=== PATIENT | female | born 1935 | race Caucasian/White ===

== ENCOUNTER 2016-08-29 15:16 | Inpatient (IN) | payer MEDICARE, BC ==
--- NOTE | ~2016-08-29 | HP ---
History And Physical [address] [address] NAME: JOHNIE GRECO : 35 STATUS : ADM IN [facility]#: [id number] AGE: 80 ADM/REG DATE : 08/29/16 MR#: [id number] REPORT SERV DATE: 08/29/16 DICTATED BY: DONI SANTOS DATE: 08/29/16 REPORT STATUS : Draft TRANSCRIBED BY: SOCORRO DATE: 08/29/16 DATE OF ADMISSION: 08/29/2016 CHIEF COMPLAINT: Hypoxia. HISTORY OF PRESENT ILLNESS: This is an 80-year-old female with a past medical history of atrial fibrillation and hypertension. According to the family, over the past few days, the patient has had decreased generalized weakness and decreased oral intake with a positive whitish to yellowish productive cough and some shortness of breath. The patient was taken to an urgent care facility found to be hypoxic and was referred to an emergency department. Upon arrival, the patient was seen by Dr. Sanchez. The patient's oxygen sats were 84%. The patient was placed on oxygen and currently on 4 L up to 94% to 96%. There is an unknown history of subjective fever and chills due to the patient's dementia. She is a poor history lime vat tender. However, she denies any swelling of her legs. Denies any chest pain. The family states that the patient has been in bed mostly for the past two days which is unusual for her. REVIEW OF SYSTEMS: Please refer to HPI, limited secondary to the patient's dementia. PAST MEDICAL HISTORY: Hypertension; dementia; GERD; left breast cancer, status post mastectomy; borderline diabetes, atrial fibrillation, dementia, PE x3 with her knee replacement. PAST SURGICAL HISTORY: Tubal ligation, left mastectomy, breast biopsy and breast reconstruction, total knee arthroplasty. SOCIAL HISTORY: No tobacco, alcohol, or illicit drugs. Family, son and daughter and others are at bedside currently. FAMILY HISTORY: Type 2 diabetes. ALLERGIES: TO LATEX. HOME MEDICATIONS: Aspirin 81 mg p.o. daily, vitamin B12 of 1000 mcg p.o. daily, Nexium 40 mg p.o. daily, Flonase one- to two-spray each nasal daily p.r.n., Claritin 10 mg p.o. daily, Namenda XR 28 mg p.o. daily, metoprolol tartrate 25 mg p.o. daily, Seroquel 25 mg p.o. q.h.s. p.r.n., Zoloft 100 mg p.o. daily, warfarin 3 mg p.o. q.48 hours and alternate 5 mg p.o. q.48 hours. PHYSICAL EXAMINATION: VITAL SIGNS: Temp of 99.9, blood pressure 122/82 with a pulse of 87, respiration of 22, initially saturating 84% on room air, now 94% to 96% on 4 L. GENERAL: The patient is alert and oriented to self and place. Obese, very responsive, very alert. HEENT: Pupils equal, round, and reactive to light. Extraocular muscles are intact. Moist History And Physical [address] [address] NAME: JOHNIE GRECO : 35 STATUS : ADM IN [facility]#: [id number] AGE: 80 ADM/REG DATE : 08/29/16 MR#: [id number] REPORT SERV DATE: 08/29/16 DICTATED BY: DONI SANTOS DATE: 08/29/16 REPORT STATUS : Draft TRANSCRIBED BY: SOCORRO DATE: 08/29/16 mucous membranes. No dentition. CARDIOVASCULAR: S1, S2. Regular rate and rhythm. No murmurs, rubs, or gallops. No JVD. RESPIRATORY: Bilateral rhonchi with bilateral expiratory wheezes in all miner. No tachypnea. ABDOMEN: Positive bowel sounds. Soft, nontender. No rebound. No fluid wave. No distention. EXTREMITIES: 2+ pulse bilaterally. No edema. NEURO: Cranial nerves II through XII grossly intact. Moves all four extremities, but with generalized weakness. IMAGING: Chest x-ray with some haziness, bibasilar. LABORATORY DATA: Sodium 141, potassium 4.0 with a chloride of 104, bicarb of 28, BUN of 10, creatinine of 0.7, with a glucose of 122. Albumin of 3.7, T-bilirubin of 1.1, alkaline phosphatase of 70, ALT of 27, with an AST of 30. Troponin less than 0.02. Lactate of 0.6. White count of 7.8 with a hemoglobin of 12.7, platelet count of 150. INR of 1.8. UA with a specific gravity 1.014, moderate amount of blood negative nitrites ,negative leukocyte esterase, 1 white blood cell, 12 red blood cells. EKG with atrial fibrillation. No ST elevation. Possible right bundle branch block. ASSESSMENT AND PLAN: 1. Acute hypoxia. 2. Acute bronchitis exacerbation with possible underlying pneumonia. 3. Debility. 4. Atrial fibrillation. 5. Hypertension. 6. The patient will be admitted to the hospital, placed on IV antibiotics. We will check procalcitonin. Also, we will perform bronchodilators. Also, we will follow up with a sputum culture and stain and also pending blood cultures. Also, the patient to be seen by Physical Therapy for her debility. There are no neuro focal deficits to suggest a cerebrovascular accident, but debilitated secondary to her hypoxia. 7. This patient will be admitted to my colleague who will attend to this patient's care. SOUTH/MODL Doni Santos M.D. / [id number] CC: Sarah Wyatt M.D.
--- NOTE | ~2016-08-29 | CN ---
Consultation Report [facility] [address] [place]. [address] NAME: JOHNIE HARDING : 35 STATUS : ADM IN PAT#: [id number] AGE: 80 ADM/REG DATE : 08/29/16 MR#: [id number] REPORT SERV DATE: 09/02/16 DICTATED BY: ISRRAEL BLANK DATE: 09/02/16 REPORT STATUS : Draft TRANSCRIBED BY: MODJez DATE: 09/02/16 CONSULTATION DATE OF CONSULTATION: Dear Dr. Wang: Thank you for requesting my opinion regarding evaluation and management of Ms. Johnie Harding's shortness of breath and hypoxemia. Ms. Harding is an extremely pleasant, 80-year-old female with a significant past medical history of dementia, hypertension, GERD, left breast cancer, status post mastectomy, borderline diabetes, atrial fibrillation, and PE x3, status post previous knee replacement, who presented to [facility] on 08/29/2016 with hypoxemia and shortness of breath. At that time, she was requiring 4 L nasal cannula and saturating in the mid 90s. She also had a modified barium swallow on 09/02/2016 that demonstrated follicular and piriform sinus pooling prior to swallows and flash penetration with liquids. She also had a CT scan of the chest on 08/31/2016 that demonstrated no PE and subsegmental atelectatic changes in the left lung base and mild cardiomegaly. She had a previous echocardiogram that was performed on 10/30/2016 that demonstrated normal LV size and function with an EF of 55%. There was moderate concentric LVH, mild left atrial enlargement, and no significant valvular disease. At some point, the patient was deemed to have a COPD, yet she had no history of prior smoking or any previous history of lung disease including COPD or asthma. The patient has been treated with Levaquin, Brovana, Pulmicort, DuoNeb scheduled and p.r.n. and moderate doses of Solu-Medrol with a clinical improvement. Her most significant improvement however came after two small doses of Bumex yesterday with an appropriate diuretic response. The patient states that, her symptoms of shortness of breath have improved. Her cough is also significantly improved. She currently describes her shortness of breath as mild in nature, well localized to the chest, nonradiating with no significant alleviating or exacerbating factors. Historically, the patient's family states that she recently had arm fracture, which required her to be in a cast, and she had been eating and laying in bed for most of that time. REVIEW OF SYSTEMS: A detailed 14-point review of systems was completed. Pertinent positives and negatives are listed above. PAST MEDICAL HISTORY: 1. Hypertension. 2. Dementia. 3. GERD. 4. Left breast cancer. Consultation Report [address] [place]. [address] NAME: JOHNIE HARDING : 35 STATUS : ADM IN PAT#: [id number] AGE: 80 ADM/REG DATE : 08/29/16 MR#: [id number] REPORT SERV DATE: 09/02/16 DICTATED BY: ISRRAEL BLANK DATE: 09/02/16 REPORT STATUS : Draft TRANSCRIBED BY: SOCORRO DATE: 09/02/16 5. Status post mastectomy. 6. Borderline diabetes. 7. Atrial fibrillation. 8. Dementia. 9. PE x3 with her knee replacement. PAST SURGICAL HISTORY: 1. As above. 2. Tubal ligation. 3. Left mastectomy. 4. Breast biopsy. 5. Breast reconstruction. 6. Total knee replacement. SOCIAL HISTORY: The patient has no history of alcohol, tobacco, or illicit drug abuse. Family, son, and daughters have been her primary support structure. She typically has somebody, who is living in the house with her at night. FAMILY HISTORY: Type 2 diabetes. ALLERGIES: LATEX. HOME MEDICATIONS: Reviewed and located in the paper chart. PHYSICAL EXAMINATION: VITAL SIGNS: Afebrile. T-current of 97.4, pulse of 98, respiratory rate of 18, 2 L 93%, blood pressure 111/67. GENERAL: No acute distress. Able to communicate in full paragraphs at a time. HEENT: Normocephalic, atraumatic. Pupils are equal, round, reactive to light and accommodation. Posterior oropharynx is clear. Edentulous. NECK: No JVD. No LAD. Trachea midline. CARDIOVASCULAR: Regular rate and rhythm. S1, S2 present. LUNGS: Coarse bilateral breath sounds. Crackles at the bases. ABDOMEN: Protuberant, nontender, nondistended, soft. Positive bowel sounds. EXTREMITIES: No clubbing, cyanosis, or edema. SKIN: No new rashes, lesions, or ulcers. PSYCHIATRIC: Alert and oriented x3. Appropriate mood and affect. Appropriate insight and judgment. NEUROLOGIC: 5/5 strength in upper and lower extremities. Cranial nerves II through XII intact. Gait not tested. DTRs not performed. LABORATORY DATA: White count of 6, hemoglobin of 12, platelet count of 152. INR of 2.0. Chemistries demonstrate a creatinine of 0.74. Sputum culture with growth of normal heidy. Consultation Report [address] [place]. [address] NAME: JOHNIE HARDING : 35 STATUS : ADM IN PAT#: [id number] AGE: 80 ADM/REG DATE : 08/29/16 MR#: [id number] REPORT SERV DATE: 09/02/16 DICTATED BY: ISRRAEL BLANK DATE: 09/02/16 REPORT STATUS : Draft TRANSCRIBED BY: SOCORRO DATE: 09/02/16 CTA of the chest on 08/31/2016 was personally reviewed by me. I agree with the following interpretation. No PE, subtle atelectatic changes in the left lung base, coronaries demonstrates some focal calcification in the LAD. There is mild cardiomegaly. Swallowing study on 09/01/2016 demonstrated vallecular and piriform sinus pooling to prior swallows and flash penetration with thickening liquids. ASSESSMENT AND PLAN: Ms. Johnie Harding is an extremely pleasant 80-year-old female with no prior history of tobacco abuse or pulmonary issues, who presented to [facility] with worsening shortness of breath and hypoxemia. The patient was treated with antibiotics, steroids, and bronchodilators with modest clinical improvement; however, the most dramatic improvement in her oxygenation was after small doses of diuretics. Her cardiac function is normal and she may have some diastolic dysfunction. Her shortness of breath is likely multifactorial due to the followin. Possible chronic aspiration after an abnormal modified barium swallow. 2. Acute bronchitis. 3. Deconditioning. 4. The patient was using small doses of narcotics after her fracture and may have had silent aspiration at that time. To optimize her pulmonary status I recommend the followin. Discontinue Solu-Medrol. 2. Discontinue antibiotics. The patient has had six days of Levaquin. 3. Discontinue Pulmicort. 4. Discontinue Brovana. 5. DuoNeb q.6 hours scheduled and q.2 hours p.r.n. 6. Aspiration precautions. 7. ICS q.1 hour. 8. Ambulate in mireles t.i.d. 9. Bumex 1 mg IV b.i.d. x1 day and will have first dose now. 10.Scheduled outpatient followup with [facility]. 11.The patient will require full pulmonary function tests and repeat oximetry on the day of the outpatient visit. I will follow along with her throughout her hospitalization this week. Thank you for allowing me to participate in this woman's care. Case has been discussed in detail with Dr. Wang. PILY/SOCORRO Consultation Report [address] [place]. [address] NAME: JOHNIE HARDING : 35 STATUS : ADM IN [facility]#: [id number] AGE: 80 ADM/REG DATE : 08/29/16 MR#: [id number] REPORT SERV DATE: 09/02/16 DICTATED BY: ISRRAEL BLANK DATE: 09/02/16 REPORT STATUS : Draft TRANSCRIBED BY: SOCORRO DATE: 09/02/16 Isrrael Blank M.D. / [id number] CC: Sarah Mejia M.D.
--- NOTE | ~2016-08-29 | CN ---
Consultation Report [address] [place]. [address] NAME: JOHNIE GRECO : 35 STATUS : ADM IN PAT#: [id number] AGE: 80 ADM/REG DATE : 08/29/16 MR#: [id number] REPORT SERV DATE: 09/02/16 DICTATED BY: JEM RIBEIRO DATE: 09/02/16 REPORT STATUS : Draft TRANSCRIBED BY: MODL DATE: 09/02/16 INPATIENT CONSULTATION DATE OF CONSULTATION: This is an 80-year-old woman who I am asked to evaluate by Dr. Wang for dysphagia. This woman has mild dementia. She was admitted to the hospital with acute bronchitis and hypoxia. There was some concern she could have had an aspiration event. Initial chest x- ray showed mild vascular congestion, but no definite infiltrate. Due to the dementia, swallowing study was performed. It showed vallecular and piriform sinus pooling and some flash penetration with thin liquids, but no evidence of aspiration. We were asked to evaluate about this abnormal study. She is now on mechanical soft diet with aspiration precautions and tolerating without difficulty. She has no symptoms of esophageal pathology. Prior chest imaging did show a medium-sized hiatal hernia. She denies any reflux or other chronic gastrointestinal issues. PAST MEDICAL HISTORY: 1. Dementia. 2. Hypertension. 3. GERD. 4. Left breast cancer. 5. Borderline diabetes. 6. Atrial fibrillation. 7. Pulmonary embolism. PAST SURGICAL HISTORY: Status post mastectomy, status post total knee replacement, status post tubal ligation, status post breast biopsy. MEDICATIONS: Tylenol, Mylanta, Zithromax, Pulmicort, Bumex, Ancef, Pepcid, Lovenox, fentanyl, Vicodin as needed, Coumadin. ALLERGIES: NO KNOWN DRUG ALLERGIES. FAMILY HISTORY: No GI malignancy. SOCIAL HISTORY: No current tobacco or alcohol abuse. REVIEW OF SYSTEMS: Otherwise, unremarkable. PHYSICAL EXAMINATION: GENERAL: She is alert and oriented, although somewhat confused about issues of her past history. VITAL SIGNS: Afebrile. Consultation Report [address] [place]. [address] NAME: JOHNIE GRECO : 35 STATUS : ADM IN PAT#: [id number] AGE: 80 ADM/REG DATE : 08/29/16 MR#: [id number] REPORT SERV DATE: 09/02/16 DICTATED BY: JEM RIBEIRO DATE: 09/02/16 REPORT STATUS : Draft TRANSCRIBED BY: SOCORRO DATE: 09/02/16 LUNGS: Clear. CARDIOVASCULAR: Regular rate and rhythm without murmur. ABDOMEN: Soft and nontender. EXTREMITIES: No edema. LAB: Potassium 3.9, sodium 145. Pro time/INR 2.0. Albumin 3.3. IMPRESSION: Mild oropharyngeal dysphagia without evidence of aspiration or esophageal pathology. RECOMMENDATIONS: 1. Continue mechanical soft diet perhaps using with her liquids and continuing aspiration precautions. 2. I see no evidence of esophageal pathology at this time, although she does have a hiatal hernia and should probably stay on some reflux medication. 3. No indication for PEG tube at this time. 4. I will certainly be available if needed. Should her dementia and swallowing issues progress and require PEG tube placement. /SOCORRO Jem Ribeiro M.D. / [id number] CC: Sarah Mejia M.D.
--- NOTE | ~2016-08-29 | PUL ---
[address] [address] NAME: JOHNIE GRECO : 35 STATUS : DIS IN PAT#: [id number] AGE: 80 ADM/REG DATE : 08/29/16 MR#: [id number] REPORT SERV DATE: 09/05/16 DICTATED BY: ISRRAEL PEREZ DATE: 09/04/16 REPORT STATUS : Draft TRANSCRIBED BY: MODL DATE: 09/04/16 PULMONARY FUNCTION TEST Overnight oximetry performed on 2 L nasal cannula, 6 hours 38 minutes and 20 seconds. Saturations were less than 88% for 6 minutes 56 seconds. Consider oxygen titration study or sleep study. Abnormal oximetry report. Clinical correlation is recommended. PILY/SOCORRO Isrrael Perez M.D. / [id number] CC: Sarah Mejia M.D.
--- NOTE | ~2016-08-29 | DS ---
Discharge Summary [facility] [address] [place]. [address] NAME: JOHNIE GRECO : 35 STATUS : DIS IN PAT#: [id number] AGE: 80 ADM/REG DATE : 08/29/16 MR#: [id number] REPORT SERV DATE: 09/07/16 DICTATED BY: TIMUR MAE DATE: 09/04/16 REPORT STATUS : Draft TRANSCRIBED BY: MODL DATE: 09/04/16 ADMISSION DATE: 08/29/2016 DISCHARGE DATE: 09/04/2016 DISCHARGE DIAGNOSES: 1. Acute hypoxemic respiratory failure thought to be due to acute bronchitis, recurrent microaspiration, possible left ventricular diastolic dysfunction, possible sleep- disordered breathing, and perhaps chronic obstructive pulmonary disease with outpatient pulmonary function testing and sleep study pending. Acute bronchitis. 2. Oropharyngeal dysphagia based on modified barium swallow with prominent cricopharyngeus. 3. Elevated BNP at 192.5 with May echocardiogram showing normal left ventricular function with left ventricular hypertrophy, suspected clinical diastolic dysfunction. 4. Chronic atrial fibrillation, on Coumadin anticoagulation. 5. History of VTE, on Coumadin anticoagulation. 6. Sleep-disordered breathing per overnight oximetry. Formal outpatient testing to be done. 7. Systemic hypertension. 8. Gastroesophageal reflux disease. 9. Obesity. 10.Insomnia with daytime lethargy and altered mental status, on home Seroquel. Discontinue at discharge. 11.History of falls. 12.History of breast cancer. 13.Obesity with BMI 34.2. 14.Recent right arm fracture with associated immobility and functional decline. OPERATIONS AND PROCEDURES: None. PRESENT ILLNESS: This is an 80-year-old white female, regular patient of Dr. Crews, who was triaged in the emergency room on 08/29/2016 at 1516 hours with shortness of breath, cough, and weakness. Admission vital signs, blood pressure 122/82, temp 99.9, pulse 87, respirations 22, O2 saturation 84%. After evaluation in the emergency room, she was thought to have pneumonia and hypoxia. She was referred to the Hospitalist Service. She was seen by Dr. Karla Enamorado and admitted as described on admission history and physical examination. ADDITIONAL HISTORY: Per Dr. Enamorado. PHYSICAL EXAMINATION: Per Dr. Enamorado. ADMISSION LABORATORY: Per Dr. Enamorado. HOSPITAL COURSE: She was admitted by Dr. Enamorado with diagnoses of: 1. Acute hypoxia. Discharge Summary [facility] [address] [place]. [address] NAME: JOHNIE GRECO : 35 STATUS : DIS IN PAT#: [id number] AGE: 80 ADM/REG DATE : 08/29/16 MR#: [id number] REPORT SERV DATE: 09/07/16 DICTATED BY: TIMUR MAE DATE: 09/04/16 REPORT STATUS : Draft TRANSCRIBED BY: MODJez DATE: 09/04/16 2. Acute bronchitis exacerbation with possible underlying pneumonia. 3. Debility. 4. Atrial fibrillation. 5. Hypertension. She was admitted to [address] [place] [address]. She was placed on IV Levaquin, DuoNebs, and Dulera. Her hospitalist care was by Dr. Koroma on 08/30/2016 and the undersigned from 08/31/2016 until discharge. On 08/30/2016, Dr. Koroma added IV steroids. During the course of her hospitalization, there was modest improvement in her cough and dyspnea with the above-mentioned therapy. A CT scan of her chest was done to evaluate for possible PE, as her INR was subtherapeutic on admission and also to evaluate for the possibility of a true pneumonia. CTA chest done on 08/31/2016 showed no pulmonary embolization. There were some subtle atelectatic changes in the left lung base. There was focal calcification in the left anterior descending coronary artery. There was mild cardiomegaly. A moderate-sized hiatal hernia was noted. No other abnormalities were seen. A BNP obtained on admission was mildly elevated at 192.5. An echocardiogram done in 05/2016 was accessed. This was a technically difficult study that showed normal LV size and systolic function with an estimated EF of 55%. There was moderate concentric LVH. No diastolic evaluation was given. Given the possibility with her age, LVH, hypertension, atrial fibrillation, that she might have left ventricular diastolic dysfunction, she was given a trial of diuretic therapy to see if this would improve her cough, dyspnea, and hypoxemia. In fact, her admission weight fell from 99.1 kg to 94.85 kg at discharge. She symptomatically improved with this diuresis and weight loss, and her family concurred. Because of the possibility of aspiration contributing to her presentation, a modified barium swallow was done. No aspiration was seen. She did exhibit one episode of flash penetration with thin liquids. A prominent cricopharyngeus in the upper esophagus resulted in esophageal residue, which returned to the pharynx. A second swallow provided clearance. It was recommended that she have mechanical soft consistencies, chopped meats with gravy, thin liquids, normal-sized straws, and medications whole in thick pudding. It was recommended that she swallow twice with each bolus. GI consultation was obtained with Dr. Ribeiro regarding her swallow study findings. He concurred with Speech Therapy. He recommended continuation of reflux medication, but did not think that further evaluation should be done. Because of the significant hypoxemia on admission and slow improvement as described, pulmonary consultation was obtained. She was seen by Dr. Isrrael Perez. He thought her shortness of breath is likely multifactorial due to possible chronic aspiration, acute bronchitis, and deconditioning. Discharge Summary [address] [address] NAME: JOHNIE GRECO : 35 STATUS : DIS IN PAT#: [id number] AGE: 80 ADM/REG DATE : 08/29/16 MR#: [id number] REPORT SERV DATE: 09/07/16 DICTATED BY: TIMUR MAE DATE: 09/04/16 REPORT STATUS : Draft TRANSCRIBED BY: SOCORRO DATE: 09/04/16 He recommended some modifications in her bronchodilator therapy. ICS, ambulation, additional diuretic therapy, and outpatient followup with [facility] for formal pulmonary function tests and oximetry. A home O2 evaluation was done on 09/03/2016 when she was clinically improved. Her resting saturation was 87%. She maintained a saturation of 94% on 2 L and home oxygen was arranged. She has some insomnia. She has been prescribed Seroquel to use on a p.r.n. basis as an outpatient. This was used in the hospital, but clearly produced some daytime hypersomnolence and confusion, and this was discontinued. By 09/04/2016, she felt better. Her dyspnea and cough had improved. Her family concurred. At this point of her hospitalization, it was felt she had achieved a level of improvement and stability, where she could be safely discharged home. She will be seen by Dr. Crews in 72 hours. A followup appoint was made for [facility]. She will have Home Healthcare for physical therapy as recommended by physical therapy evaluation here. MEDICATIONS AT DISCHARGE: Pending outpatient followup, aspirin 81 mg daily, Tessalon Perles 100 mg three times daily as needed, guaifenesin LA 1200 mg twice daily, Claritin 10 mg daily, Namenda XR 20 mg daily, Lopressor 25 mg daily, Nexium 40 mg a.c. breakfast and supper note increased dosage considering sort of her cough might be GERD, Zoloft 100 mg daily, Coumadin 3 mg alternating with 5 mg every other day, Flonase nasal spray as needed, Tylenol 650 mg every four hours as needed, B12 at 1000 mcg daily, albuterol MDI plus spacer two to four puffs every four to six hours as needed for cough and wheezing, Bumex 1 mg daily plus potassium 20 mEq after breakfast and supper dose to be adjusted pending weights, symptoms, and BMP. FOLLOWUP: In [address] Crews. Discharge time greater than 30 minutes. DD/MODL Timur Mae M.D. / [id number] CC: Sarah Mejia M.D. Adrienne N Harrington, M.D. Subhash Virani, M.D. Alan Shikoh, M.D. Krishnendu Bhadra, M.D.
[~2016-08-29 15:16] MED LIST: ALEVE220 MG PO; ASAB PO; ASABAYER PO; C5 PO; COUMADIN3 MG PO; LOP25 PO; LOVENOX1C SC; NEXIUM40 PO; PCET PO; ZOL100 PO
[2016-08-29 15:57] LABS: BASOPHILS 0.1 %; BASOPHILS ABSOLUTE 0.01 10/3/uL (0.0-0.16); EOSINOPHILS 1.8 %; EOSINOPHILS ABSOLUTE 0.14 10/3/uL (0.0-0.53); ER CBC TAT 0 Hrs 05 Mins; HEMATOCRIT 38.7 % (36.0-48.0); HEMOGLOBIN 12.7 g/dL (12.0-16.0); IMMATURE GRANULOCYTES 0.5 %; IMMATURE GRANULOCYTES ABSOLUTE 0.04 10/3/uL (0.0-0.11); LYMPHOCYTES 9.3 %; LYMPHOCYTES ABSOLUTE 0.72 10/3/uL (0.67-4.30); MANUAL DIFF NO %; MEAN CORPUS HGB CONC 32.8 g/dL (32.0-36.0); MEAN CORPUSCULAR HEMOGLOB 29.2 pg (26.0-34.0); MEAN PLATELET VOLUME 9.2 fL (9.2-13.0); NEUTROPHILS 79.3 %; NEUTROPHILS ABSOLUTE 6.17 10/3/uL (2.02-8.40); PLATELET COUNT 150 10/3/uL (150-400); RBC DISTRIBUTION WIDTH 14.7 % (12.0-16.0); RED CELL COUNT 4.35 10/6/uL (4.0-5.6); WHITE BLOOD CELLS 7.8 10/3/uL (4.5-10.5)
[2016-08-29 16:03] LABS: INTERNATIONAL NORMAL RATI 1.8 UNITS (-); PARTIAL THROMBO TIME 31.5 SEC (22.5-37.2); PROTIME (NOT ORD) 20.6 SEC (12.0-14.5)
[2016-08-29] MEDS ORDERED: NAMENXR28 PO (16:03)
[2016-08-29] MEDS ORDERED: ZOL100 PO (16:03)
[2016-08-29] MEDS ORDERED: NEXIUM40 PO (16:03)
[2016-08-29] MEDS ORDERED: COUMADIN3 MG PO (16:04)
[2016-08-29] MEDS ORDERED: ASAB PO (16:04)
[2016-08-29] MEDS ORDERED: CLARIT10 PO (16:05)
[2016-08-29] MEDS ORDERED: CYANO1000T PO (16:05)
[2016-08-29] MEDS ORDERED: C5 PO (16:05)
[2016-08-29] MEDS ORDERED: LOP25 PO (16:06)
[2016-08-29 16:08] LABS: INFLUENZA A SCREEN NEGATIVE (NEGATIVE); INFLUENZA B SCREEN NEGATIVE (NEGATIVE)
[2016-08-29 16:08] LABS: ASCORBIC ACID (UR NOT ORDER) NEG (NEG); BILIRUBIN, URINE NEGATIVE (NEG); ER URINALYSIS TAT 0 Hrs 09 Mins; KETONE, URINE NEGATIVE (NEG); LEUKOCYTE ESTERASE(NOT OR NEG (NEG); NITRITE (URINE) NEG (NEG); WBC (NOT ORDERED) (RFLEX) 1 (0-5)
[2016-08-29] MEDS ORDERED: SEROQUEL25 PO (16:09)
[2016-08-29] MEDS ORDERED: FLONASE NAS (16:10)
[2016-08-29 16:14] LABS: A/G RATIO 1.1 (0.7-1.9); ALBUMIN 3.7 G/DL (3.5-5.0); ALKALINE PHOSPHATASE 70 U/L (45-117); CALCIUM, SERUM 8.4 MG/DL (8.5-10.4); CHLORIDE, SERUM 104 MMOL/L (96-112); CO2 (CARBON DIOXIDE) 28 MMOL/L (24-34); GFR AFRICAN AMERICAN 95 ML/MIN (>=60); GFR NON AFRICAN AMERICAN 82 ML/MIN (>=60); GLOBULIN 3.4 G/DL (2.5-4.1); LACTATE 0.6 MMOL/L (0.3-2.4); SGOT(AST) 30 U/L (5-40); SGPT(ALT) 27 U/L (5-65); SODIUM, SERUM 141 MMOL/L (135-148); TOTAL PROTEIN 7.1 G/DL (6.0-8.5); TROPONIN I <0.02 NG/ML (<0.05)
[2016-08-29 16:15] LABS: BUN (BLOOD UREA NITROGEN) 10 MG/DL (6-23); GLUCOSE, SERUM 122 MG/DL (60-99); TOTAL BILIRUBIN 1.1 MG/DL (0-1.2)
[2016-08-30 04:04] LABS: PROTIME (NOT ORD) 22.3 SEC (12.0-14.5)
[2016-08-30 04:09] LABS: ALBUMIN 3.3 G/DL (3.5-5.0); ALKALINE PHOSPHATASE 65 U/L (45-117); BUN (BLOOD UREA NITROGEN) 12 MG/DL (6-23); CALCIUM, SERUM 8.5 MG/DL (8.5-10.4); CHLORIDE, SERUM 107 MMOL/L (96-112); CO2 (CARBON DIOXIDE) 30 MMOL/L (24-34); CREATININE 0.82 MG/DL (0.55-1.02); GFR AFRICAN AMERICAN 78 ML/MIN (>=60); GFR NON AFRICAN AMERICAN 68 ML/MIN (>=60); GLOBULIN 3.4 G/DL (2.5-4.1); GLUCOSE, SERUM 114 MG/DL (60-99); POTASSIUM, SERUM 3.9 MMOL/L (3.5-5.3); SGOT(AST) 38 U/L (5-40); SGPT(ALT) 28 U/L (5-65); SODIUM, SERUM 145 MMOL/L (135-148); TOTAL PROTEIN 6.7 G/DL (6.0-8.5)
[2016-08-30 04:17] LABS: BASOPHILS 0.3 %; BASOPHILS ABSOLUTE 0.02 10/3/uL (0.0-0.16); EOSINOPHILS 2.4 %; EOSINOPHILS ABSOLUTE 0.16 10/3/uL (0.0-0.53); HEMATOCRIT 38.5 % (36.0-48.0); IMMATURE GRANULOCYTES 0.3 %; IMMATURE GRANULOCYTES ABSOLUTE 0.02 10/3/uL (0.0-0.11); LYMPHOCYTES 16.3 %; LYMPHOCYTES ABSOLUTE 1.11 10/3/uL (0.67-4.30); MEAN CORPUS HGB CONC 31.2 g/dL (32.0-36.0); MEAN CORPUSCULAR HEMOGLOB 28.2 pg (26.0-34.0); MEAN CORPUSCULAR VOLUME 90.4 fL (80-100); MEAN PLATELET VOLUME 9.4 fL (9.2-13.0); MONOCYTES 9.4 %; MONOCYTES ABSOLUTE 0.64 10/3/uL (0.21-1.20); NEUTROPHILS 71.3 %; NEUTROPHILS ABSOLUTE 4.84 10/3/uL (2.02-8.40); PLATELET COUNT 150 10/3/uL (150-400); RED CELL COUNT 4.26 10/6/uL (4.0-5.6); WHITE BLOOD CELLS 6.8 10/3/uL (4.5-10.5)
[2016-08-30 04:20] LABS: MANUAL DIFF NO %
[2016-08-31 05:07] LABS: BASOPHILS 0.2 %; BASOPHILS ABSOLUTE 0.01 10/3/uL (0.0-0.16); EOSINOPHILS 0 %; HEMATOCRIT 38.5 % (36.0-48.0); HEMOGLOBIN 12.1 g/dL (12.0-16.0); IMMATURE GRANULOCYTES 0.3 %; IMMATURE GRANULOCYTES ABSOLUTE 0.02 10/3/uL (0.0-0.11); LYMPHOCYTES 11.2 %; MEAN CORPUS HGB CONC 31.4 g/dL (32.0-36.0); MEAN CORPUSCULAR HEMOGLOB 28.4 pg (26.0-34.0); MEAN CORPUSCULAR VOLUME 90.4 fL (80-100); MEAN PLATELET VOLUME 9.1 fL (9.2-13.0); MONOCYTES 8.3 %; MONOCYTES ABSOLUTE 0.52 10/3/uL (0.21-1.20); NEUTROPHILS ABSOLUTE 5.01 10/3/uL (2.02-8.40); PLATELET COUNT 152 10/3/uL (150-400); RBC DISTRIBUTION WIDTH 14.8 % (12.0-16.0); RED CELL COUNT 4.26 10/6/uL (4.0-5.6); WHITE BLOOD CELLS 6.3 10/3/uL (4.5-10.5)
[2016-08-31 05:08] LABS: MANUAL DIFF NO %
[2016-08-31 05:10] LABS: INTERNATIONAL NORMAL RATI 1.8 UNITS (-); PROTIME (NOT ORD) 20.7 SEC (12.0-14.5)
[2016-08-31 05:40] LABS: ALBUMIN 3.2 G/DL (3.5-5.0); CALCIUM, SERUM 8.5 MG/DL (8.5-10.4); CHLORIDE, SERUM 106 MMOL/L (96-112); CO2 (CARBON DIOXIDE) 26 MMOL/L (24-34); CREATININE 0.79 MG/DL (0.55-1.02); GFR AFRICAN AMERICAN 82 ML/MIN (>=60); GFR NON AFRICAN AMERICAN 71 ML/MIN (>=60); PHOSPHORUS, SERUM 2.1 MG/DL (2.5-4.5); SODIUM, SERUM 142 MMOL/L (135-148)
[2016-08-31 05:44] LABS: BUN (BLOOD UREA NITROGEN) 16 MG/DL (6-23); GLUCOSE, SERUM 138 MG/DL (60-99)
[2016-09-01 06:19] LABS: INTERNATIONAL NORMAL RATI 1.8 UNITS (-); PROTIME (NOT ORD) 20.5 SEC (12.0-14.5)
[2016-09-01 06:23] LABS: BUN (BLOOD UREA NITROGEN) 21 MG/DL (6-23); CALCIUM, SERUM 8.4 MG/DL (8.5-10.4); CHLORIDE, SERUM 107 MMOL/L (96-112); CO2 (CARBON DIOXIDE) 28 MMOL/L (24-34); CREATININE 0.75 MG/DL (0.55-1.02); GFR AFRICAN AMERICAN 87 ML/MIN (>=60); GFR NON AFRICAN AMERICAN 75 ML/MIN (>=60); GLUCOSE, SERUM 115 MG/DL (60-99); POTASSIUM, SERUM 3.6 MMOL/L (3.5-5.3); SODIUM, SERUM 145 MMOL/L (135-148)
[2016-09-02 05:53] LABS: PROTIME (NOT ORD) 22.7 SEC (12.0-14.5)
[2016-09-02 05:59] LABS: BUN (BLOOD UREA NITROGEN) 20 MG/DL (6-23); CALCIUM, SERUM 8.5 MG/DL (8.5-10.4); CHLORIDE, SERUM 105 MMOL/L (96-112); CO2 (CARBON DIOXIDE) 30 MMOL/L (24-34); CREATININE 0.74 MG/DL (0.55-1.02); GFR AFRICAN AMERICAN 89 ML/MIN (>=60); GFR NON AFRICAN AMERICAN 77 ML/MIN (>=60); GLUCOSE, SERUM 97 MG/DL (60-99); POTASSIUM, SERUM 3.9 MMOL/L (3.5-5.3); SODIUM, SERUM 145 MMOL/L (135-148)
[2016-09-03 07:12] LABS: INTERNATIONAL NORMAL RATI 2.1 UNITS (-); PROTIME (NOT ORD) 23.1 SEC (12.0-14.5)
[2016-09-04 06:42] LABS: INTERNATIONAL NORMAL RATI 2.1 UNITS (-); PROTIME (NOT ORD) 23.1 SEC (12.0-14.5)
[2016-09-04 08:37] LABS: BASOPHILS 0.3 %; BASOPHILS ABSOLUTE 0.03 10/3/uL (0.0-0.16); EOSINOPHILS 1.2 %; EOSINOPHILS ABSOLUTE 0.13 10/3/uL (0.0-0.53); HEMOGLOBIN 14.2 g/dL (12.0-16.0); IMMATURE GRANULOCYTES 0.5 %; IMMATURE GRANULOCYTES ABSOLUTE 0.05 10/3/uL (0.0-0.11); LYMPHOCYTES 24.4 %; LYMPHOCYTES ABSOLUTE 2.57 10/3/uL (0.67-4.30); MEAN CORPUS HGB CONC 31.6 g/dL (32.0-36.0); MEAN CORPUSCULAR HEMOGLOB 28.3 pg (26.0-34.0); MEAN CORPUSCULAR VOLUME 89.8 fL (80-100); MONOCYTES 9.7 %; MONOCYTES ABSOLUTE 1.02 10/3/uL (0.21-1.20); NEUTROPHILS 63.9 %; NEUTROPHILS ABSOLUTE 6.72 10/3/uL (2.02-8.40); PLATELET COUNT 196 10/3/uL (150-400); RBC DISTRIBUTION WIDTH 14.8 % (12.0-16.0); RED CELL COUNT 5.01 10/6/uL (4.0-5.6)
[2016-09-04 08:43] LABS: MANUAL DIFF NO %; WHITE BLOOD CELLS 10.5 10/3/uL (4.5-10.5)
[2016-09-04] MEDS ORDERED: TESS PO (11:08)
[2016-09-04] MEDS ORDERED: HUMI PO (11:10)
[2016-09-04] MEDS ORDERED: T PO (11:14)
[2016-09-04] MEDS ORDERED: BUM1 PO (11:15)
[2016-09-04] MEDS ORDERED: KLOR-CON M2020 MEQ PO (11:16)
[2016-09-04] MEDS ORDERED: PROAIR HFA INH (11:17)
== END 2016-09-04 13:37 | disposition home health service (06) | DRG 189 ==
LOC: ER 15:16 → 6NO 17:22
PROVIDERS: Emergency Medicine; Internal Medicine
DX: J96.01 Acute respiratory failure with hypoxia (principal); I48.2 Chronic atrial fibrillation; J44.0 Chronic obstructive pulmonary disease with (acute) lower respiratory infection; R13.12 Dysphagia, oropharyngeal phase; J44.1 Chronic obstructive pulmonary disease with (acute) exacerbation; J20.9 Acute bronchitis, unspecified; K21.9 Gastro-esophageal reflux disease without esophagitis; E66.9 Obesity, unspecified; F32.9 Major depressive disorder, single episode, unspecified; G47.00 Insomnia, unspecified; K44.9 Diaphragmatic hernia without obstruction or gangrene; Z68.34 Body mass index [BMI] 34.0-34.9, adult; Z91.81 History of falling; Z85.3 Personal history of malignant neoplasm of breast; Z79.01 Long term (current) use of anticoagulants; Z86.711 Personal history of pulmonary embolism; Z96.659 Presence of unspecified artificial knee joint
CPT/HCPCS: 71010; 71275; 74230; 80048; 80053; 80069; 81001; 83036; 83605; 83880; 84145; 84484; 85025; 85610; 85730; 87040; 87070; 87205; 87449; 87804; 92611-GN; 94640; 94762; 96374; 97110-GP; 97116-GP; 97162-GP; 99285; A9270-GY; G8978-CK-GP; G8979-CJ-GP; G8996-CJ-GN; G8997-CJ-GN; G8998-CJ-GN; J1956; J2930; J3411; Q9967